=== PATIENT | male | born 1975 | race Caucasian/White ===

== ENCOUNTER 2018-01-10 20:08 | Emergency (ER) | payer SELFPAY ==
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
[2018-01-10] MEDS ORDERED: AMOX/K CLAV 875 MG TAB ONE (22:18)
[2018-01-10 22:40] VITALS: BP 122/88; TEMP 98.3; O2SAT 98
== END 2018-01-10 22:20 | disposition home or self-care (01) ==
LOC: ER 20:08
DX: S02.31XA Fracture of orbital floor, right side, initial encounter for closed fracture (principal); W50.0XXA Accidental hit or strike by another person, initial encounter; Y93.9 Activity, unspecified; Y92.9 Unspecified place or not applicable; I10 Essential (primary) hypertension; F17.210 Nicotine dependence, cigarettes, uncomplicated
CPT/HCPCS: 70450; 70486; 76377; 99284

== ENCOUNTER 2018-03-13 19:17 | Emergency (ER) | payer SELFPAY ==
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
--- NOTE | 2018-03-13 21:05 | EDPHYS ---
Physician Documentation [facility] Name: Taran Hoang Age: 43 yrs Sex: Male : 1975 Arrival Date: 03/13/2018 Time: 19:20 Bed 6 Private MD: ED Physician Justice Becker HPI: 03/13 21:31 This 43 yrs old Male presents to ER via Ambulatory with complaints of Rash. jr8 21:31 The patient's rash thought to be caused by an unknown cause. The rash is located on the jr8 face and pelvis. The rash can be described as erythematous, raised. Onset: The symptoms/episode began/occurred acutely, yesterday. Associated signs and symptoms: Pertinent positives: itching. Severity of symptoms: At their worst the symptoms were mild in the emergency department the symptoms are unchanged. The patient has not experienced similar symptoms in the past. The patient has not recently seen a physician. Does not recall getting into anything in particular. Stated that he was around poison [place] the other day but does not think he had contact with plant . Historical: - Allergies: 19:47 No Known Allergies; ak1 - Home Meds: 19:47 None [Active]; ak1 - PMHx: 19:47 Hypertension; ak1 - PSHx: 19:47 both shoulders; Appendectomy; right ankle; ak1 - Immunization history:: Adult Immunizations unknown. - Social history:: Smoking status: Patient uses tobacco products, smokes one-half pack cigarettes per day. - Ebola Screening: : No symptoms or risks identified at this time. ROS: 21:31 Eyes: Negative for injury, pain, redness, and discharge, ENT: Negative for injury, jr8 pain, and discharge, Neck: Negative for injury, pain, and swelling, Cardiovascular: Negative for chest pain, palpitations, and edema, Respiratory: Negative for shortness of breath, cough, wheezing, and pleuritic chest pain, Abdomen/GI: Negative for abdominal pain, nausea, vomiting, diarrhea, and constipation, Back: Negative for injury and pain, MS/Extremity: Negative for injury and deformity, Neuro: Negative for headache, weakness, numbness, tingling, and seizure. 21:31 Skin: Positive for rash, of the face and pelvis. Exam: 21:31 Head/Face: Normocephalic, atraumatic. Eyes: Pupils equal round and reactive to light, jr8 extra-ocular motions intact. Lids and lashes normal. Conjunctiva and sclera are non-icteric and not injected. Cornea within normal limits. Periorbital areas with no swelling, redness, or edema. ENT: Nares patent. No nasal discharge, no septal abnormalities noted. Tympanic membranes are normal and external auditory canals are clear. Oropharynx with no redness, swelling, or masses, exudates, or evidence of obstruction, uvula midline. Mucous membranes moist. Neck: Trachea midline, no thyromegaly or masses palpated, and no cervical lymphadenopathy. Supple, full range of motion without nuchal rigidity, or vertebral point tenderness. No Meningismus. Cardiovascular: Regular rate and rhythm with a normal S1 and S2. No gallops, murmurs, or rubs. Normal PMI, no JVD. No pulse deficits. Respiratory: Lungs have equal breath sounds bilaterally, clear to auscultation and percussion. No rales, rhonchi or wheezes noted. No increased work of breathing, no retractions or nasal flaring. Abdomen/GI: Soft, non-tender, with normal bowel sounds. No distension or tympany. No guarding or rebound. No evidence of tenderness throughout. Back: No spinal tenderness. No costovertebral tenderness. Full range of motion. MS/ Extremity: Pulses equal, no cyanosis. Neurovascular intact. Full, normal range of motion. Neuro: Awake and alert, GCS 15, oriented to person, place, time, and situation. Cranial nerves II-XII grossly intact. Motor strength 5/5 in all extremities. Sensory grossly intact. Cerebellar exam normal. Normal gait. 21:31 Skin: rash a mild rash is noted, rash can be described as erythematous, raised, on the face and pelvis. Vital Signs: 19:47 BP 127 / 98; Pulse 81; Resp 18; Temp 98.1; Pulse Ox 97% on R/A; Weight 74.84 kg (R); ak1 Height 5 ft. 8 in. (172.72 cm); Pain 1/10; 20:07 BP 126 / 78; Pulse 80; Resp 18; Pulse Ox 98% ; lp1 21:38 BP 127 / 89; Pulse 78; Resp 18; Temp 98.7; Pulse Ox 98% on R/A; Pain 0/10; lp1 19:47 Body Mass Index 25.09 (74.84 kg, 172.72 cm) ak1 MDM: 20:26 Patient medically screened. jr8 21:04 Data reviewed: vital signs, nurses notes, and as a result, I will discharge patient. jr8 Data interpreted: Pulse oximetry: on room air is 97 %. Interpretation: normal. Counseling: I had a detailed discussion with the patient and/or guardian regarding: the historical points, exam findings, and any diagnostic results supporting the discharge/admit diagnosis, the need for outpatient follow up, a family practitioner, to return to the emergency department if symptoms worsen or persist or if there are any questions or concerns that arise at home. 21:31 ED course: Possibly a contact dermatitis vs allergic reaction Will put on steroids. jr8 Told to follow up. Administered Medications: 21:23 Drug: SOLU-Medrol 125 mg Route: IM; Site: right gluteus; ea 21:40 Follow up: Response: No adverse reaction lp1 Disposition: 03/14 21:16 Co-signature as Attending Physician, Justice Becker MD Available for consultation at ps1 all times. Disposition: 03/13/18 21:05 Discharged to Home. Impression: Rash and other nonspecific skin eruption. - Condition is Stable. - Discharge Instructions: Rash. - Prescriptions for Medrol (Jono) 4 mg Oral Tablets, Dose Pack - take 1 tablet by ORAL route as directed - follow package instructions; 1 packet. - Medication Reconciliation Form, Thank You Letter, Antibiotic Education, Prescription Opioid Use form. - Follow up: Private Physician; When: 2 - 3 days; Reason: Recheck today's complaints, Continuance of care, Re-evaluation by your physician. - Problem is new. - Symptoms have improved. Signatures: Katty Swenson, RN RN lp1 Adrian Charles PA PA jr8 Elzbieta Villalpando RN RN ak1 Felicia Browning RN RN ea Singer, Phillip, MD MD ps1 Corrections: (The following items were deleted from the chart) 03/13 21:41 21:05 03/13/2018 21:05 Discharged to Home. Impression: Rash and other nonspecific skin lp1 eruption. Condition is Stable. Forms are Medication Reconciliation Form, Thank You Letter, Antibiotic Education, Prescription Opioid Use. Follow up: Private Physician; When: 2 - 3 days; Reason: Recheck today's complaints, Continuance of care, Re-evaluation by your physician. Problem is new. Symptoms have improved. jr8
[2018-03-13] MEDS ORDERED: METHYLPREDNISOLONE 125 MG INJ ONE (21:23)
[2018-03-13 21:45] VITALS: O2SAT 98
[2018-03-13 21:47] VITALS: BP 127/89; TEMP 98.7
== END 2018-03-13 21:41 | disposition home or self-care (01) ==
LOC: ER 19:17
DX: R21 Rash and other nonspecific skin eruption (principal); I10 Essential (primary) hypertension; F17.210 Nicotine dependence, cigarettes, uncomplicated
CPT/HCPCS: 96372; 99283; J2930